=== PATIENT | female | born 1955 | race Caucasian/White ===

== ENCOUNTER 2022-01-17 11:38 | Emergency (ER) | payer OTHER ==
[~2022-01-17] VITALS: Ht 160 cm; Wt 99.3 kg
== END 2022-01-17 13:00 | disposition home or self-care (01) ==
LOC: ER 11:38
DX: R53.83 Other fatigue (principal); R00.2 Palpitations; Z91.048 Other nonmedicinal substance allergy status

== ENCOUNTER 2022-12-19 19:55 | Emergency (ER) | payer OTHER ==
[~2022-12-19] VITALS: Ht 160 cm; Wt 93.0 kg
[2022-12-19] MEDS ORDERED: PROTONIX40 MG (20:14)
== END 2022-12-20 01:57 | disposition home or self-care (01) ==
LOC: ER 19:55
PROVIDERS: Emergency Medicine
DX: N39.0 Urinary tract infection, site not specified (principal); N20.9 Urinary calculus, unspecified; E11.9 Type 2 diabetes mellitus without complications; Z88.8 Allergy status to other drugs, medicaments and biological substances
CPT/HCPCS: 36415; 74176; 96365; 96366; 99284; J0696; J1885; J2405; J7030